=== PATIENT | male | born 1995 | race American Indian/Alaskan Native ===

== ENCOUNTER 2021-01-15 21:06 | Emergency (ER) | payer SELFPAY ==
[2021-01-15] MEDS ORDERED: IBUPROFEN 600 MG TABLET PO STA (21:32)
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
[2021-01-15 22:03] VITALS: BP 127/80
== END 2021-01-15 22:10 | disposition home or self-care (01) ==
LOC: ED 21:06
DX: M25.562 Pain in left knee (principal); M25.561 Pain in right knee; V49.9XXA Car occupant (driver) (passenger) injured in unspecified traffic accident, initial encounter
CPT/HCPCS: 73560; 99282; 99283; A9270